=== PATIENT | male | born 1995 | race Two or more races ===

== ENCOUNTER 2024-06-04 02:46 | Emergency (ER) | payer MEDICAID ==
[~2024-06-04] VITALS: Ht 175.3 cm; Wt 88.3 kg
[2024-06-04] MEDS ORDERED: CYCL-1 PO (03:26)
[2024-06-04] MEDS ORDERED: NAPR-56 PO (03:26)
[2024-06-04] MEDS ORDERED: TRAM50TA2 PO (03:26)
[2024-06-04] MEDS: cyclobenzaprine 10mg tablet PO ONE (03:48)
[2024-06-04] MEDS: traMADol 50MG tablet PO ONE (03:48)
[2024-06-04 03:56] VITALS: BP 126/80; PULSE 60; TEMP 98.3; O2SAT 93
[2024-06-04 04:12] VITALS: RESP 16
[2024-06-04] MEDS: naproxen 500mg tablet PO ONE (04:25)
== END 2024-06-04 04:30 | disposition home or self-care (01) ==
LOC: ER 02:48
DX: M54.2 Cervicalgia (principal); M54.9 Dorsalgia, unspecified; F17.200 Nicotine dependence, unspecified, uncomplicated; Z79.1 Long term (current) use of non-steroidal anti-inflammatories (NSAID); Z79.899 Other long term (current) drug therapy; V49.9XXA Car occupant (driver) (passenger) injured in unspecified traffic accident, initial encounter; Y93.89 Activity, other specified; Y92.89 Other specified places as the place of occurrence of the external cause; Y99.8 Other external cause status
CPT/HCPCS: 70450; 72125; 99284